=== PATIENT | female | born 1990 | race Caucasian/White ===

== ENCOUNTER 2017-01-19 17:53 | Emergency (ER) | payer OTHER ==
[~2017-01-19] VITALS: Ht 154.9 cm; Wt 51.4 kg
[2017-01-19] MEDS ORDERED: SODIUM CHLORIDE 0.9% 1,000 ML IV ONE (18:19)
[2017-01-19 19:12] LABS: CHLORIDE 109 mEq/L (98-107)
[2017-01-19 19:15] LABS: BASOPHILS % 0.6 % (0.0-2.0); EOSINOPHILS % 1.2 % (0.0-5.0); HEMATOCRIT. 42.3 % (36.0-48.0); HEMOGLOBIN. 14.1 g/dL (12.0-16.0); LYMPHOCYTES % 18.3 % (20.0-50.0); MEAN CORPUSCULAR HEMOGLOBIN 30.9 pg (28.0-32.0); MEAN CORPUSCULAR VOLUME 92.6 fL (81.0-99.0); MEAN PLATELET VOLUME 10.2 fl (7.4-10.4); MONOCYTES % 6.4 % (2.0-8.0); NEUTROPHILS % 73.5 % (40.0-76.0); PLATELET 71 x1000/uL (130-400); RED BLOOD CELL COUNT 4.56 mill/uL (4.2-5.4)
[2017-01-19 19:20] LABS: CARBON DIOXIDE 22 mEq/L (21-32)
[2017-01-19 20:00] VITALS: BP 95/47
[2017-01-19 20:45] LABS: CLARITY URINE CLOUDY (CLEAR); COLOR URINE YELLOW (YELLOW); GLUCOSE URINE NEGATIVE (NEGATIVE); KETONES URINE NEGATIVE (NEGATIVE); LEUKOCYTE ESTERASE URINE 2+ (NEGATIVE); NITRITE URINE NEGATIVE (NEGATIVE); OCCULT BLOOD URINE NEGATIVE (NEGATIVE); PH URINE 6.5 (4.5-8.0); PROTEIN URINE NEGATIVE (NEGATIVE); SPECIFIC GRAVITY URINE 1.016 (1.005-1.030); UROBILINOGEN URINE 0.2 E.U./dL (0.2-1.0)
== END 2017-01-19 20:35 | disposition home or self-care (01) ==
LOC: ER 17:53
DX: R55 Syncope and collapse (principal); R03.0 Elevated blood-pressure reading, without diagnosis of hypertension; R94.31 Abnormal electrocardiogram [ECG] [EKG]
CPT/HCPCS: 36415; 80053; 81001; 81025; 85025; 93005; 96360; 99285; J7030; Z7610

== ENCOUNTER 2017-12-18 00:20 | Emergency (ER) | payer OTHER ==
[~2017-12-18] VITALS: Ht 152.4 cm; Wt 50.0 kg
[2017-12-18] MEDS ORDERED: LIDOCAINE HCL 1% 20ML VIAL (Pyxis) INJ INFIL ONE (04:00)
[2017-12-18] MEDS ORDERED: LIDOCAINE HCL/PF 1% 10 MG/ML 5ML VIAL ONE (04:01)
[2017-12-18 04:19] VITALS: BP 139/89
== END 2017-12-18 04:20 | disposition home or self-care (01) ==
LOC: ER 00:20
DX: S41.012A Laceration without foreign body of left shoulder, initial encounter (principal); W01.118A Fall on same level from slipping, tripping and stumbling with subsequent striking against other sharp object, initial encounter; Y93.89 Activity, other specified; Y92.018 Other place in single-family (private) house as the place of occurrence of the external cause
CPT/HCPCS: 12001; 99283; J3490; Z7610